=== PATIENT | female | born 1975 | race African-American/Black ===

== ENCOUNTER 2017-03-01 03:29 | Observation (INO) | payer BC ==
[2017-03-01 04:19] LABS: Bilirubin Negative (Negative); Blood, Urine Small (Negative); Glucose, Urine (Dipstick) Negative (Negative); Ketone, Urine Negative (Negative); Nitrite Negative (Negative); Protein, Urine (Dipstick) Negative (Neg-Trace); Urobilinogen 0.2 mg/dL (0.2-1.0)
[2017-03-01 04:22] LABS: Bacteria/HPF None Seen HPF (None Seen); WBC/HPF 0-3 HPF (0-3)
[2017-03-01 04:28] LABS: Hyaline Casts/LPF NONE SEEN LPF (0-3 Hyaline)
[2017-03-01 04:31] LABS: Amphetamine Not Detected (NotDetected); Methamphetamine Not Detected (NotDetected)
[2017-03-01 04:32] LABS: Methadone Not Detected (NotDetected)
[2017-03-01] MEDS ORDERED: Lorazepam 2 MG/ML VIAL ONE (04:40)
[2017-03-01] MEDS ORDERED: Ketorolac Tromethamine 30 MG/ML VIAL ONE (04:40)
[2017-03-01] MEDS ORDERED: Ondansetron HCl/PF 4 MG/2 ML Vial ONE (04:44)
[2017-03-01 04:56] LABS: #Basophils 0.1 thou/uL (0.0-0.2); #Eosinphils 0.1 thou/uL (0.0-0.7); #Lymphocytes 2.2 thou/uL (1.20-3.40); #Monocytes 0.6 thou/uL (0.11-0.59); #Neutrophils 7.1 thou/uL (1.40-6.50); %Eosinophils 1.1 % (0.0-10.0); %Lymphocytes 21.4 % (21.0-51.0); %Monocytes 6.3 % (0.0-10.0); Hematocrit 37.7 % (36.0-47.0); Mean Platelet Volume 6.8 fL (7.4-10.4); Red Blood Cell (RBC) Count 3.93 mill/uL (4.20-5.40); White Blood Cell (WBC) Count 10.1 thou/uL (4.8-10.8)
[2017-03-01 05:03] LABS: ALT (SGPT) 9 U/L (8-55); AST (SGOT) 13 U/L (5-34); Alkaline Phosphatase 67 U/L (40-150); Anion Gap 13 mmol/L (10-20); BUN (Urea Nitrogen) 12 mg/dL (7.0-18.7); Bilirubin, Total 0.3 mg/dL (0.2-1.2); Calc. Creatinine Clearance 0 mL/min (70-130); Carbon Dioxide 20 mmol/L (22-29); Chloride 107 mmol/L (98-107); Estimated GFR-MDRD Greater than 90; Globulin 3.1 g/dL (2.4-3.5); Lipase 18 U/L (8-78); Protein, Total 7.1 g/dL (6.0-8.3)
--- NOTE | 2017-03-01 08:53 | CT ---
PRELIMINARY REPORT/[facility]/EMERGENCY AFTER HOURS PROCEDURE: EXAM: CT Abdomen and Pelvis With Intravenous Contrast CLINICAL HISTORY: 41 years old, female; Pain; Abdominal pain; Generalized TECHNIQUE: Axial computed tomography images of the abdomen and pelvis with intravenous contrast. Coronal reformatted images were created and reviewed. CONTRAST: 100 mL of ISOVUE administered intravenously. COMPARISON: No relevant prior studies available. FINDINGS: Lower thorax: No acute findings. ABDOMEN: Liver: Unremarkable. Gallbladder and bile ducts: Gallbladder is enlarged and distended. No calcified stone. Pancreas: Unremarkable. Spleen: Unremarkable. Adrenals: Unremarkable. Kidneys and ureters: Unremarkable. Stomach and bowel: Stool throughout the colon. Appendix: Appendix is not seen, however no inflammatory changes in the pericecal region seen at this time. PELVIS: Bladder: Unremarkable. Reproductive: Status post hysterectomy. ABDOMEN and PELVIS: Intraperitoneal space: No free air. No significant fluid collection. Bones/joints: No acute fracture. No dislocation. Soft tissues: Unremarkable. Vasculature: Unremarkable. No abdominal aortic aneurysm. Lymph nodes: Scattered non specific subcentimeter mesenteric lymph nodes. IMPRESSION: 1. Gallbladder is enlarged and distended. Finding may represent gallbladder hydrops. Recommend right upper quadrant sonogram for further evaluation. 2. Appendix is not seen, however no inflammatory changes in the pericecal region seen at this time. Thank you for allowing us to participate in the care of your patient. Dictated and Authenticated by: Garcia Mendoza MD 03/01/2017 6:22 AM Central Time ([place] & [place]) FINAL REPORT CONTRAST ENHANCED CT IMAGES OF ABDOMEN AND PELVIS: Date: 03/01/17 FINDINGS/IMPRESSION: IV and oral contrast given. This is the final report. Preliminary exam was performed by [facility]. The liver, spleen, gallbladder, and pancreas are unremarkable. The left kidney is unremarkable. In the central mid pole of the right kidney, there is a tiny area of decreased enhancement, not seen on the patient's previous CT from 10/25/16. This may represent a small area of acute focal pyelonephr itis. Correlate with laboratory findings. The rest of the abdomen and pelvis is unremarkable. Findings called to Dr. Cordon in the ER at 0811 hours on 03/01/17. This report is in disagreement with the preliminary report by [facility]. POS: [facility]
--- NOTE | 2017-03-01 09:09 | ULT ---
ULTRASOUND GALLBLADDER RIGHT UPPER QUADRANT: Date: 03/01/17 HISTORY: Pain. COMPARISON: CT examination from same day. FINDINGS: Appendix is not well seen. The gallbladder is elongated without pericholecystic fluid, wall thickenin g, or cholelithiasis. Gallbladder wall is 2.0 mm. Common bile duct is less than 3.0 mm. Right kidney measures 11.5 x 4.1 x 4.7 cm. Liver is normal in echotexture, measured at 19.2 cm in length. IMPRESSION: 1. No cholelithiasis or evidence of cholecystitis. 2. Mild hepatomegaly. POS: [facility]
[2017-03-01] MEDS ORDERED: Haloperidol Lactate 5 MG/ML VIAL ONE (09:38)
[2017-03-01] MEDS ORDERED: Acetaminophen 650 MG Suppository PR PRN (11:00)
[2017-03-01] MEDS ORDERED: Ondansetron HCl/PF 4 MG/2 ML Vial IVP PRN (11:00)
[2017-03-01] MEDS ORDERED: Ondansetron ODT 4 MG TAB PO PRN (11:00)
[2017-03-01] MEDS ORDERED: Calcium Carbonate 500 MG ChewTAB PO PRN (11:00)
[2017-03-01 11:05] VITALS: BMI 21.4
[2017-03-01] MEDS: Acetaminophen 325 MG TAB PO SCH ×3 (11:48→21:28)
--- NOTE | 2017-03-01 11:58 | PDOC.EVN ---
Attending Addendum - Attending Addendum I personally evaluated the patient and discussed the management with Dr. Tiffani Hand. I agree with the History, Examination, Assessment and Plan documented in his H& P with any addition or exceptions noted below. Patient with recent fall and pain for the last 6 days admitted here due to agitation, abdominal pain, and concern for pyelonephritis. She has had no nausea , vomiting, fever, diarrhea, constipation. Reports her previous surgical incision (from 4 months ago) was painful after her fall. She has no bruising. Her reports that the patient ran out of Soma a few days ago, and she normally takes that along with [employer] that is prescribed for chronic back pain. The patient is resting comfortably now, but was highly agitated in the ER and had to be given Ativan and Haldol to calm. She has normal blood work, a UA that is not consistent with UTI or pyelonephritis, and a CT scan of abdomen that does not show serious or acute pathology. Due to symptoms and time course, it is possible the patient is experiencing Soma withdrawals. Will treat supportively, pain medications as needed, though will avoid opioids and benzos if possible. Haldol/Geodon as needed for agitation if uncontrollable. Do not expect Pyelonephritis or any other serious intraabdominal cause of her presentation.
[2017-03-01] MEDS ORDERED: Ketorolac Tromethamine 15 MG/ML VIAL IM SCH (12:00)
[2017-03-01] MEDS ORDERED: Ketorolac Tromethamine 30 MG/ML VIAL IM SCH (12:00)
--- NOTE | 2017-03-01 13:25 | HP-2 ---
CODE STATUS: FULL. PRIMARY CARE PHYSICIAN: None. ATTENDING: Roderick Hernandez M.D. RESIDENT: Luigi Hand M.D. HISTORIAN: Patient's sister and . SPECIALISTS: None. CHIEF COMPLAINT: Abdominal pain. HISTORY OF PRESENT ILLNESS: A 41-year-old -Israeli female with past medical history of prepyloric perforation with exploratory laparotomy repair in 10/[address] Bradley, who presents with abdominal pain following a fall. The patient fell in her abdomen five days ago when stepping over a chain link fence. She landed on her right lower quadrant on the ground, which is where her prior surgery occurred per the patient's sister. Abdominal pain continued over last 5 days. Presented to ED with 10/10 pain. Denied any nausea, vomiting, fevers, or change in bowel habits. Denies urinary complaints. Of note, the patient is on Dawson and Soma through boat painter in [place] for chronic back pain that was started at least 4-5 months ago. She ran out of Soma at least 2 days ago per her . She still has Dawson at home. In the ED, the patient was exhibiting bizarre behavior per the ED report. She was writhing in pain on ED floor after removing her clothes when she was reevaluated by the ED physician who recommended admission. ER: Rocephin 1 gram, morphine 6 mg IV, Ativan 1 mg IV, Haldol 2.5 mg IM, Toradol 30 mg IM and 1 liter normal saline. PAST MEDICAL HISTORY: 1. Tobacco abuse. 2. Chronic back pain. PAST SURGICAL HISTORY: In the last year, the patient has had hysterectomy, laparoscopic oophorectomy, and exploratory laparotomy for pyloric perforation closure with omental flap (10/24). ALLERGIES: No known drug allergies. MEDICATIONS: 1. Dawson 10/325 mg p.r.n. 2. Soma, unknown dose. FAMILY HISTORY: 1. Mother, hypertension. 2. Sister, asthma. SOCIAL HISTORY: The patient smokes 1 pack per day for at least 6 years. Rare alcohol use. Denies any other drug use. The patient works at the [employer]. She is with two children. Denies any ill contacts. REVIEW OF SYSTEMS: A 12-step review of systems including general, eyes, ENT, respiratory, CV, GI, , skin, musculoskeletal, neuro, and psychiatric are negative except for pertinent positives included in HPI. PHYSICAL EXAMINATION: VITAL SIGNS: BP 138/74, pulse 68, T-max 98.5, respiratory rate 22, O2 sat 99% on room air, weight 54 kilograms. GENERAL: The patient is sedated and difficult to arouse, lying naked in the bed with covers over her head. Answers questions appropriately when awakened, appears uncomfortable when awake. EYES: EOMI, PERRLA, and nonicteric. ENT: Moist mucous membranes. Oropharynx clear. CARDIOVASCULAR: Regular rate and rhythm, no murmur, rubs, or gallops. Pulses are equal. RESPIRATORY: CTAB, no increased work of breathing, no rales or rhonchi. ABDOMEN: Nondistended. Diffuse guarding, riving in pain during exam. The patient was sleeping comfortably at baseline. When palpating with stethoscope, patient appears less uncomfortable with minimal guarding. No CVA tenderness present. EXTREMITIES: No edema. Equal movements bilaterally. SKIN: No rash or ulcers. No palpable lesions. NEUROLOGIC: Cranial nerves II through XII focally intact. No focal deficits. PSYCHIATRIC: The patient is sedated, agitated when aroused. LABORATORY DATA: CBC: WBC 10.1, hemoglobin 12.2, hematocrit 37.7, and platelets 355. CMP: Sodium 136, potassium 3.5, chloride 107, bicarbonate 20, BUN 12, creatinine 0.73, glucose 125, calcium 9.0, total protein 7.1, albumin 4.0, total bilirubin 0.3, AST 13, ALT 9, alkaline phosphatase 67. Lipase 18. Beta hCG negative. UDS positive for benzos and UA small blood, 4-6 RBCs, 0-3 WBCs, no bacteria, no nitrites, and leukocyte esterase and 4-6 squamous epithelial cells. IMAGING: CT abdomen and pelvis showed a tiny area of decreased enhancement in the right kidney, which may be consistent with acute focal pyelonephritis. Enlarged gallbladder noted. Right upper quadrant ultrasound showed elongated gallbladder with no wall thickening or cholelithiasis. Common bile duct is less than 3 mm. Mild hepatomegaly seen. ASSESSMENT AND PLAN: A 41-year-old -Israeli female, who presents with abdominal pain. 1. Acute drug withdrawal secondary to Soma. The patient ran out of Filecubed at least 2 days ago per . Has been taking for a few months at least through boat painter in [place]. The patient has increased anxiety, agitation, and abdominal pain which are not explained by exam, imaging, and labs. History of fall on abdomen but CT abdomen/pelvis showed nothing acute except a tiny focal area on right kidney that could be consistent with pyelonephritis in proper context. She denies urinary complaints or fever, and has no labs corroborating this diagnosis. The patient was given Rocephin x1 in ED to cover. The patient required Haldol and Ativan to calm her down with bizarre behaviors that appear more consistent with psychosis secondary to Soma withdrawal. Supportive care is planned. We will avoid opioids and Soma this time. Toradol and Tylenol as needed for pain relief. Haldol as needed for psychosis. We will continue to monitor her status. We will check LDH to evaluate for mesenteric ischemia. Observation to medical. Expect one day stay. 2. Tobacco abuse. Nicotine patch p.r.n. 3. Prophylaxis, SCDs. Symptomatic medications will be provided. History and physical exam as well as management discussed with Dr. Hernandez. [place]
[2017-03-01] MEDS ORDERED: ISOVUE-370 76%-LOCM 1 ML ONE (13:41)
[2017-03-01] MEDS ORDERED: Iopamidol 370 76% 50 ML VIAL FS ONE (13:41)
[2017-03-01] MEDS ORDERED: FLU VACC QS2017-18 36 mo. & older 0.5 ML SYRINGE IM ONE (14:00)
[2017-03-01] MEDS ORDERED: Haloperidol Lactate 5 MG/ML VIAL IM SCH (15:00)
[2017-03-01] MEDS: Famotidine 20 MG TAB PO SCH (21:28)
[2017-03-01] MEDS: Ketorolac Tromethamine 30 MG/ML VIAL IM PRN (23:56)
[2017-03-02] MEDS: Acetaminophen 325 MG TAB PO SCH ×4 (00:01→12:10)
[2017-03-02] MEDS ORDERED: Simethicone Chewable 80 MG TAB PO SCH (06:59)
--- NOTE | 2017-03-02 07:04 | PDOC.FM ---
- Subjective Subjective: Pt kicking around laying down the wrong side of the hospital bed. Says she is still having really bad stomach pain. Did not eat anything as she does not have an appetite. Denies any fevers or chills. Denies any other sx's - Objective Vital Signs & Weight: Vital Signs (12 hours) Temp Pulse Resp BP Pulse Ox 03/02/17 00:00 99.2 F 03/01/17 20:33 100 F H 67 18 146/87 H 96 03/01/17 20:00 100 F H 67 18 96 Result Diagrams: 03/01/17 04:42 03/01/17 04:42 Radiology Reviewed by me: Yes (No new imaging ) Radiology: CT ab/pelvis: Read mentions possibility of Pyleonephritis. patient does not fit that clinical picture. <Charanjit Sidhu - Last Filed: 03/02/17 07:01> - Objective Vital Signs & Weight: Vital Signs (12 hours) Temp Pulse Resp BP BP Pulse Ox 03/02/17 08:00 98.6 F 60 18 134/79 134/79 97 03/02/17 00:00 99.2 F Weight Admit Weight 54.885 kg Weight 54.885 kg Result Diagrams: 03/01/17 04:42 03/01/17 04:42 <Roderick Hernandez - Last Filed: 03/02/17 11:22> Phys Exam - Physical Examination Constitutional: NAD HEENT: PERRLA, moist MMs, oral pharynx no lesions Neck: no nodes, supple, full ROM Respiratory: no wheezing, no rales, no rhonchi, clear to auscultation bilateral Cardiovascular: RRR, no significant murmur, no rub Gastrointestinal: soft, non-tender, no distention, positive bowel sounds Very tender to mild palpation. Pt very agitated kicking around Musculoskeletal: no edema, pulses present Neurological: non-focal, normal sensation, moves all 4 limbs Deviation from normal: Hysterionic. Pt thrashing about. Laying wrong side of bed. Skin: no rash, normal turgor, cap refill <2 seconds <Charanjit Sidhu - Last Filed: 03/02/17 07:01> Dx/Plan (1) Acute drug withdrawal syndrome Code(s): F19.239 - OTH PSYCHOACTIVE SUBSTANCE DEPENDENCE WITH WITHDRAWAL, UNSP Status: Acute (2) Tobacco abuse Code(s): Z72.0 - TOBACCO USE Status: Acute (3) Elevated blood pressure reading Code(s): R03.0 - ELEVATED BLOOD-PRESSURE READING, W/O DIAGNOSIS OF HTN Status : Acute - Plan Plan: Acute Drug Withdrawl likely from Soma medication -Pt having reported severe abdominal pain. Has been found naked on multiple occasions. Thrashing and kicking about. CT ab/pelvis shows no acute pathology or anything of concern. One of the symptoms of Soma withdrawl is abdominal pain and severe agitation. -Given geodon this morning. Giving Haldol PRN. -Toradol Q6 hr, and tylenol fely. Still having pain. -Will try maalox, bentyl, and simethicone to help with abdomnial pain. -Pt likely has underlying psych component Elevate BP -BP elevated. Pt constantly moving and thrashing about. Possibly may need blood pressure medication. Will need to f/u outpatient Tobacco abuse -counseled on quitting <Charanjit Sidhu - Last Filed: 03/02/17 07:01> Attending Addendum - Attending Addendum I personally evaluated the patient and discussed the management with Dr. Sidhu. I agree with the History, Examination, Assessment and Plan documented above with any addition or exceptions noted below. Patient more coherent this morning, able to answer questions appropriately. She continues to have severe abdominal pain that began after her fall, and continues to exhibit rebound and severe abdominal tenderness even with distraction techniques. Will discuss case with surgery. Patient reports a desire to go home if it can be determined so serious etiology is the cause of her pain. <Roderick Hernandez - Last Filed: 03/02/17 11:22>
[2017-03-02] MEDS ORDERED: Haloperidol Lactate 5 MG/ML VIAL IM SCH (07:15)
[2017-03-02] MEDS: Famotidine 20 MG TAB PO SCH (07:36)
[2017-03-02] MEDS: Dicyclomine 10 MG CAP PO SCH ×2 (07:36→12:10)
[2017-03-02] MEDS: Mag-Al 1200 mg/1200 mg/30 ML UDCUP PO SCH ×2 (07:36→12:10)
[2017-03-02 08:16] VITALS: BP 134/79; TEMP 98.6
[2017-03-02] MEDS: Ketorolac Tromethamine 30 MG/ML VIAL IM PRN (09:51)
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
--- NOTE | 2017-03-04 14:30 | DIS-2 ---
DATE OF ADMISSION: 03/01/2017 DATE OF DISCHARGE: 03/02/2017 DISCHARGE AND ADMITTING ATTENDING: Roderick Hernandez MD CONSULTATIONS: General surgery, Dr. Chau. PROCEDURES: None. IMAGIN. Abdomen and pelvis CT showed gallbladder is enlarged and distended probably may represent gallbla dder hydrops. Recommended right upper quadrant sonogram for further evaluation. Appendix is not see n; however, no inflammatory changes in the pericecal region seen at this time. 2. Abdomen ultrasound showed no cholelithiasis or evidence of cholecystitis. Mild hepatomegaly. DISCHARGE MEDICATIONS: Zofran 4 mg p.o. q.6 hours p.r.n.; acetaminophen 325 mg; Maalox as needed; Tu ms as needed; dicyclomine as needed; hydrocodone 10 mg, 2 tabs p.o. q.4 hours; pantoprazole 40 mg; an d potassium 40 mEq p.o. q.a.m. PRIMARY DIAGNOSES: 1. Acute drug withdrawal from Soma medication. 2. Elevated blood pressures. 3. Tobacco abuse. HISTORY OF PRESENT ILLNESS AND BRIEF HOSPITAL COURSE: This is a 41-year-old female that came in with a history of exploratory laparotomy and repair of perforated ulcer in 10/[address] Bradley. She r eports that she had fallen earlier in the week on Friday on a chain and found on the ground, and had abdominal pain ever since. She is a chronic pain medication user, uses [place] and uses Soma. She had ran out of the [place] about 2 days ago prior to this admission. She came in writhing around in pain a nd at one point would get naked, just kept kicking and screaming, just reporting of severe abdominal pain. She would have almost an acute abdomen picture on physical exam. They got CT exam, which show ed maybe some pyelonephritis, but we got a UA which was negative for anything. We had cultured it ou t, it did not grow anything. Her labs also were fine. White blood cell count was 10.1. Her BMP was fine and she never did have any fevers and no CVA tenderness on admission as well. We likely read u shawn some Soma medication withdrawal can have kind of acute abdominal picture, kind of have severe abd ominal pain and psychosis. So, at this time, we admitted her, gave her Haldol and Geodon to try and help her calm down. On the second day on the , she just reported she wanted just General Surgery to make sure that her abdomen was okay as she had fallen and fallen on her abdomen was concerned als o, that is why we consulted General Surgery. They checked out and said that she was fine, read the i mages and did not have anything of concern. So, at this time, we discharged her home. I recommended she get her medication refilled if needed. DISPOSITION: Stable. DISCHARGE LOCATION: Home. ACTIVITY: As tolerated. DIET: Regular diet. FOLLOWUP: She will need to follow up with primary care in 14 days for hospital followup.
== END 2017-03-02 14:50 | disposition home or self-care (01) ==
LOC: ERS 03:29 → T4-A 10:51 → INTOOBSV 10:51
PROVIDERS: ADMIT Student in an Organized Health Care Education/Training Program; ATTEND Student in an Organized Health Care Education/Training Program
DX: F11.23 Opioid dependence with withdrawal (principal); R03.0 Elevated blood-pressure reading, without diagnosis of hypertension; F17.210 Nicotine dependence, cigarettes, uncomplicated; Z90.721 Acquired absence of ovaries, unilateral; Z90.710 Acquired absence of both cervix and uterus; Z98.890 Other specified postprocedural states
CPT/HCPCS: 36415; 74177; 76705; 80053; 80306; 81003; 81015; 83615; 83690; 84703; 85025; 87086; 96372; 96374; 96375; 96376; G0378; J0696; J1630; J1885; J2060; J2405; Q0162

== ENCOUNTER 2017-08-23 04:25 | Emergency (ER) | payer BC, SELFPAY ==
[2017-08-23 05:25] LABS: Bilirubin Negative (Negative); Blood, Urine Moderate (Negative); Clarity CLOUDY (Clear); Glucose, Urine (Dipstick) Negative (Negative); Leukocyte Negative (Negative); Nitrite Negative (Negative); Protein, Urine (Dipstick) 30 mg/dL (Neg-Trace); Specific Gravity, Urine 1.025 (1.002-1.036); Urobilinogen 0.2 mg/dL (0.2-1.0); pH, Urine 6.5 (5.0-9.0)
[2017-08-23 05:28] LABS: Bacteria/HPF None Seen HPF (None Seen); Hyaline Casts/LPF 0-3 HYALINE CAST LPF (0-3 Hyaline); Pathc Cast-AUWi Flag 0.43 (0-2.49); WBC/HPF 0-3 HPF (0-3)
[2017-08-23 05:32] LABS: #Basophils 0.1 thou/uL (0.0-0.2); #Lymphocytes 1.9 thou/uL (1.20-3.40); #Neutrophils 12.4 thou/uL (1.40-6.50); %Basophils 0.6 % (0.0-1.0); %Eosinophils 0.2 % (0.0-10.0); %Monocytes 6.4 % (0.0-10.0); %Neutrophils 80.8 % (42.0-75.0); Hemoglobin 13.2 g/dL (12.0-16.0); Mean Corpuscular HGB CONC 34.3 g/dL (32.0-36.0); Mean Corpuscular Hemoglobin 32.2 pg (27.0-31.0); Mean Platelet Volume 6.7 fL (7.4-10.4); Platelet Count 285 thou/uL (130-400); RBC Distribution Width 13.1 % (11.5-14.5); Red Blood Cell (RBC) Count 4.09 mill/uL (4.20-5.40); White Blood Cell (WBC) Count 15.4 thou/uL (4.8-10.8)
[2017-08-23 05:41] LABS: BHCG - Serum Negative (NEGATIVE); Pregs Control Background? CLEAR/WHITE (CLR/WHITE); Pregs Control Bar Appear? YES (CONTROL BAR)
[2017-08-23 05:43] LABS: Renal Epithelial None Seen HPF (0-3); Transitional Epithelial NONE SEEN HPF (0-3)
[2017-08-23 05:46] LABS: ALT (SGPT) 19 U/L (8-55); AST (SGOT) 22 U/L (5-34); Albumin 4.4 g/dL (3.5-5.0); Alkaline Phosphatase 68 U/L (40-150); Anion Gap 17 mmol/L (10-20); BUN (Urea Nitrogen) 14 mg/dL (7.0-18.7); Bilirubin, Total 0.4 mg/dL (0.2-1.2); Calc. Creatinine Clearance 0 mL/min (70-130); Calcium 9.4 mg/dL (7.8-10.44); Carbon Dioxide 19 mmol/L (22-29); Chloride 105 mmol/L (98-107); Estimated GFR-MDRD Greater than 90; Globulin 3.2 g/dL (2.4-3.5); Glucose 154 mg/dL (70-105); Lipase 8 U/L (8-78); Potassium 3.3 mmol/L (3.5-5.1); Protein, Total 7.6 g/dL (6.0-8.3); Sodium 138 mmol/L (136-145)
[2017-08-23] MEDS ORDERED: Morphine 10 MG/ML VIAL ONE (05:58)
[2017-08-23] MEDS ORDERED: Bisacodyl 10 MG SUPP ONE (06:54)
[2017-08-23] MEDS ORDERED: Magnesium Citrate 300 ML BOT ONE (06:54)
--- NOTE | 2017-08-23 08:02 | ULT ---
PELVIC ULTRASOUND: Date: 08/23/17 HISTORY: Left-sided pelvic pain. FINDINGS: Transabdominal images were obtained. Transvaginal could not be done as the patient would not hold sti ll and the transabdominal images are limited due to lack of patient cooperation due to pain. The uterus has been removed by history. Neither right nor left ovary is identified. No fluid collecti on seen. IMPRESSION: Limited exam. Postop hysterectomy change. Neither right nor left ovary is identified. POS: [facility]
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
== END 2017-08-23 08:28 | disposition home or self-care (01) ==
LOC: ERS 04:25
DX: K59.00 Constipation, unspecified (principal); F17.210 Nicotine dependence, cigarettes, uncomplicated; Z79.899 Other long term (current) drug therapy
CPT/HCPCS: 36415; 74176; 76856; 80053; 81003; 81015; 83690; 84703; 85025; 96372; J2270

== ENCOUNTER 2017-08-30 15:57 | Observation (INO) | payer SELFPAY ==
[~2017-08-30 15:57] MED LIST: ISOVUE-370 76%-LOCM 1 ML ONE
--- NOTE | 2017-08-30 17:37 | ULT ---
PELVIC ULTRASOUND WITH DOPPLER (TRANSABDOMINAL, TRANSVAGINAL, CALDWELL SCALE, COLOR FLOW AND SPECTRAL DOPPLER) 08/30/17 HISTORY: Left sided pelvic pain. Left lower quadrant pain. Patient is status post hysterectomy and right oopho rectomy. FINDINGS: The uterus and right ovary are not visualized. The left ovary measures 2.2 x 1.6 x 1.4 cm with a 1.2 cm dominant follicle. Flow is demonstrated through the left ovary. No pelvic mass or free fluid is id entified. IMPRESSION: No significant abnormalities are seen. POS: [facility]
[2017-08-30] MEDS ORDERED: Ketorolac Tromethamine 30 MG/ML VIAL ONE (17:59)
[2017-08-30] MEDS ORDERED: Pantoprazole 40 MG VIAL ONE (17:59)
--- NOTE | 2017-08-30 19:25 | PDOC.FPRHP ---
- History of Present Illness Chief Complaint: Abdominal pain/N/V x5 days History of Present Illness: This is a 42 yo AAF w/ significant PMH of perforated Ulcer in 2017 likely 2/2 NSAID use, tobacco abuse, hysterectomy 2/2 fibroids, R oophorectomy 2/2 ovarian torsion, Bilateral tubal ligation, presents w/ worsening abdominal pain for the past 5 days assocaited w/ Nausea, vomiting, anorexia, and dark stool today and unable to tolerate water. States that it feels similar to previous perforated ulcer. She was transferred here for ovarian US, which was negative. Her last CT scan of the abdomen on 08/23 without contrast was negative. She hasn't had an EGD or colonoscopy since 10/2016. - Allergies/Adverse Reactions Allergies Allergy/AdvReac Type Severity Reaction Status Date / Time No Known Drug Allergies Allergy Verified 10/14/16 08:51 - Home Medications Medication Instructions Recorded Confirmed Type HYDROcodone Bit/APAP 10/325 [Randolph] 2 tab PO Q4H PRN #30 tab 10/19/16 03/01/17 Rx Pantoprazole [Protonix] 40 mg IVP DAILY #60 vial 10/19/16 03/01/17 Rx Potassium Chloride [K-Dur] 40 meq PO QAM-WM #30 tab 10/27/16 03/01/17 Rx Acetaminophen [Tylenol Regular 650 mg PO Q4HR tab 03/02/17 Rx Strength] Aluminum & Magnesium Hydroxide 30 ml PO QID-WM udcup 03/02/17 Rx [Maalox] Calcium Carbonate [Tums] 1,000 mg PO Q4H PRN tab 03/02/17 Rx Dicyclomine [Bentyl] 10 mg PO QID cap 03/02/17 Rx Ondansetron [Zofran ODT] 4 mg PO Q6H PRN #30 tab 03/02/17 Rx - History PMHx: Perforated peptic ulcer, Uterine fibroids, Ovarian torsion, SBO PSHx: Hysterectomy 2/2 fibroids, R oophorectomy 2/2 Ovarian torsion, bilateral tubal ligation, Lapartomy for perforated ulcer FHx: None Social: + tobacco abuse. No alcohol or drug use. - Review of Systems ROS unobtainable: other (History difficult to obtain as patient uncooperative, and has a diffult time sitting still.) General: reports: fever/chills, weight/appetite/sleep changes Eyes: denies: eye pain, vision changes ENT: denies: nasal congestion, rhinorrhea Respiratory: denies: cough, congestion, shortness of breath Cardiovascular: denies: chest pain, palpitation Gastrointestinal: reports: nausea, vomiting, abdominal pain, other (dark stool) Genitourinary: denies: incontinence, dysuria, polyuria, discharge Skin: denies: rashes, lesions - Vital signs BP: 107/96 HR: 84 RR: 16 Tmax: 100.4 Pox: 100% on RA Wt: 45kg - Physical Exam Constitutional: NAD, awake, alert and oriented, other (Thin, cachetic appearing) HEENT: normocephalic and atraumatic, PERRLA, EOMI, TM's clear and intact, grossly normal hearing, normal nasal mucosa, MMM, other (Poor dentition) Heart: RRR, normal S1/S2, no murmurs/rubs/gallops Lungs: CTAB, no respiratory distress, good air movement, no rales/rhonchi, no wheezing, no retractions Abdomen: soft, bowel sounds present, no masses/distention, other (+ midline old keloid scar, No rebound, no peritoneal signs.) Neurological: CN II-XII intact Psychiatric: other (Uncooperative) FMR H&P: Results - Labs Lab results: Reviewed [facility] labs CBC: 7.1/12.1/36.9/378 CMP: 134/3.0/99/20/13/0.72/110. AST: 40, ALT: 100, Alk phos - 55. UA - Pro 100, 40 ketones, trace blood, 7-10 RBCs. Pelvic US w/ doppler negative. FMR H&P: A/P - Problem List (1) Abdominal pain Current Visit: Yes Status: Acute Code(s): R10.9 - UNSPECIFIED ABDOMINAL PAIN Assessment and Plan: Pt has long hx of abdominal pain, however pt states that this feels like perforated ulcer in the past. Awaiting stat CTA of abdomen results. If negative , consider GI consult in am. Will also check UDS. UA showed hematuria which after review of previous labs, has been long-standing and does not appear to have been worked up. Recommend urology consult in am and f/u with urine cx. Will start zosyn as patient now developing fever, and also check Blood cx. Will use morphine PRN for pain, as patient unable to tolerate NSAIDs 2/2 perforated ulcer in past. Will also check FOBT as pt complaining of dark stool today. (2) Elevated LFTs Current Visit: Yes Status: Acute Code(s): R94.5 - ABNORMAL RESULTS OF LIVER FUNCTION STUDIES Assessment and Plan: New onset elevated ALT. Will check RUQ US, RPR, HIV. (3) Fever Current Visit: Yes Status: Acute Code(s): R50.9 - FEVER, UNSPECIFIED Assessment and Plan: Will f/u w/ Urine Cx, Blood cx, RUQ US, CTA abd 2/ contrast. (4) Hematuria Current Visit: Yes Status: Acute Code(s): R31.9 - HEMATURIA, UNSPECIFIED Assessment and Plan: Consider urology consult in am. (5) Hypokalemia Current Visit: No Status: Acute Code(s): E87.6 - HYPOKALEMIA Assessment and Plan: Will replace and check a mag and recheck in am. Likely 2/2 anorexia (6) Tobacco abuse Current Visit: No Status: Chronic Code(s): Z72.0 - TOBACCO USE Assessment and Plan: Counselled on cessation FMR H&P: Upper Level - Plan Date/Time: 08/30/171909 I, [], have evaluated this patient and agree with findings/plan as outlined by leadership program internship resident. Pertinent changes/additions are listed here.
[2017-08-30] MEDS ORDERED: Ondansetron HCl/PF 4 MG/2 ML Vial IVP PRN (19:32)
[2017-08-30] MEDS ORDERED: Ondansetron ODT 4 MG TAB PO PRN (19:32)
[2017-08-30] MEDS ORDERED: Pantoprazole 40 MG VIAL IVP SCH ×2 (19:32→19:45)
[2017-08-30] MEDS ORDERED: Morphine 2 MG/ML SYRINGE SLOW IVP PRN (19:36)
[2017-08-30] MEDS ORDERED: Lorazepam 2 MG/ML VIAL SLOW IVP PRN (19:39)
[2017-08-30] MEDS ORDERED: Potassium Chloride 10 MEQ in Premix Bag 1 BAG IVPB SCH ×2 (19:45)
[2017-08-30 20:56] LABS: BHCG - Serum Negative (NEGATIVE); Pregs Control Background? CLEAR/WHITE (CLR/WHITE); Pregs Control Bar Appear? YES (CONTROL BAR)
[2017-08-30 21:00] LABS: Acetaminophen Less than 6.0 mcg/mL (10.0-30.0); Alcohol Less than 10 mg/dL (Less than 10); Magnesium 1.5 mg/dL (1.6-2.6); Salicylate Less than 8.0 mg/dL (15.0-30.0)
[2017-08-30] MEDS ORDERED: Morphine 4 MG/ML Carpuject SLOW IVP SCH (21:00)
[2017-08-30 21:18] LABS: Syphilis Antibody Nonreactive (Nonreactive); Syphilis Antibody Index 0.04 S/CO (<1.00 Non-Reactive)
[2017-08-30] MEDS: Piperacillin/Tazobactam 3.375 GM in Sodium Chloride 0.9% 100 ML IVPB SCH (21:58)
[2017-08-30] MEDS ORDERED: Magnesium 2 GM/NS 0.9% 100 ML 2 GM in Premix Bag 1 BAG IVPB SCH (22:15)
[2017-08-30 22:45] LABS: Amphetamine Not Detected (NotDetected); Barbiturates Screen Not Detected (NotDetected); Benzodiazepine Screen Not Detected (NotDetected); Cocaine Metabolite Screen Not Detected (NotDetected); Medtox Control Line Valid? VALID (VALID); Medtox Reader # READER 1; Methadone Not Detected (NotDetected); Methamphetamine Not Detected (NotDetected); Opiate Screen Detected (NotDetected); Oxycodone Screen Not Detected (NotDetected); Phencyclidine (PCP) Not Detected (NotDetected); THC/Cannabinoid Screen Not Detected (NotDetected); Tricyclic Screen Not Detected (NotDetected)
--- NOTE | 2017-08-30 22:46 | ULT ---
RIGHT UPPER QUADRANT ULTRASOUND 08/30/17 HISTORY: Elevated LFTs and abdominal pain. FINDINGS: The liver, pancreas, gallbladder, and right kidney appear normal. The common duct measures 2 mm in di ameter. No free fluid is seen. IMPRESSION: Unremarkable exam. POS: [facility]
[2017-08-30 23:45] LABS: HBSAg Index 0.18 S/CO (0-0.99); HIV (1/2) Antibody/Antigen Non-Reactive (NonReactive); HIV 1/2 INDEX 0.08 S/CO (<1.00); Hep B Core Total Ab Non-Reactive (NonReactive); Hep B Core Total Index 0.07 S/CO (0-0.79); Hep B Surf Ag Non-Reactive S/CO (NonReactive); Hep C IgG Ab Non-Reactive (NonReactive); Hep C Index 0.07 S/CO (0-0.79)
--- NOTE | 2017-08-31 00:03 | CT ---
CT ABDOMEN AND PELVIS WITH ORAL AND IV CONTRAST: 08/30/17 HISTORY: Intermittent abdominal pain for the past year since pyloric ulcer repair after rupture. FINDINGS: Comparison is made with exam of 03/01/17. The lung bases are clear. The liver, spleen, pancreas, adrenal glands and kidneys are normal. No calc ified gallstones are identified. No free air, free fluid or lymphadenopathy seen in the abdomen or pe lvis. The small bowel loops are not abnormally dilated. An abnormally dilated fluid filled appendix i s not definitely seen. There is suggestion of thickening of the wall of the distal stomach/pyloric an trum. IMPRESSION: Probable wall thickening of the pyloric antrum. Further evaluation with endoscopy is recommended. POS: [facility]
[2017-08-31] MEDS: Sodium Chloride 0.9% 1,000 ML IV SCH ×2 (00:23→13:01)
[2017-08-31 00:33] LABS: Hep B Surf AB Reactive (NonReactive)
[2017-08-31 00:34] LABS: HBSAB Concentration 1640.01 mIU/mL
[2017-08-31 00:56] VITALS: BMI 20.3
[2017-08-31] MEDS: Piperacillin/Tazobactam 3.375 GM in Sodium Chloride 0.9% 100 ML IVPB SCH ×4 (02:28→21:07)
[2017-08-31 05:48] LABS: Hemoglobin 12.4 g/dL (12.0-16.0); Mean Corpuscular HGB CONC 32.5 g/dL (32.0-36.0); Mean Corpuscular Hemoglobin 31.8 pg (27.0-31.0); Mean Corpuscular Volume 97.8 fL (78.0-98.0); Mean Platelet Volume 6.6 fL (7.4-10.4); Platelet Count 317 thou/uL (130-400); RBC Distribution Width 13.7 % (11.5-14.5); Red Blood Cell (RBC) Count 3.91 mill/uL (4.20-5.40); White Blood Cell (WBC) Count 9.8 thou/uL (4.8-10.8)
[2017-08-31 06:03] LABS: Magnesium 2.6 mg/dL (1.6-2.6)
[2017-08-31 06:14] LABS: #Eosinphils 0.1 thou/uL (0.0-0.7); #Lymphocytes 3.7 thou/uL (1.20-3.40); #Monocytes 0.9 thou/uL (0.11-0.59); %Basophils 0.5 % (0.0-1.0); %Eosinophils 1.5 % (0.0-10.0); %Lymphocytes 37.9 % (21.0-51.0); %Monocytes 8.9 % (0.0-10.0); %Neutrophils 51.2 % (42.0-75.0); Band 2 % (5-11); Lymphocytes 32 % (21-51); MDiff Complete? YES; Monocytes 6 % (0-10); Neutrophil 60 % (42-75)
[2017-08-31] MEDS: Morphine 2 MG/ML SYRINGE SLOW IVP PRN ×3 (06:34→13:06)
[2017-08-31 06:58] LABS: ALT (SGPT) 76 U/L (8-55); AST (SGOT) 31 U/L (5-34); Albumin 3.7 g/dL (3.5-5.0); Alkaline Phosphatase 48 U/L (40-150); Anion Gap 14 mmol/L (10-20); BUN (Urea Nitrogen) 5 mg/dL (7.0-18.7); Bilirubin, Total 0.8 mg/dL (0.2-1.2); Calc. Creatinine Clearance 82 mL/min (70-130); Calcium 8.7 mg/dL (7.8-10.44); Carbon Dioxide 20 mmol/L (22-29); Chloride 102 mmol/L (98-107); Estimated GFR-MDRD Greater than 90; Globulin 2.5 g/dL (2.4-3.5); Glucose 94 mg/dL (70-105); Protein, Total 6.2 g/dL (6.0-8.3); Sodium 133 mmol/L (136-145)
[2017-08-31 07:00] LABS: Potassium 2.9 mmol/L (3.5-5.1)
[2017-08-31] MEDS ORDERED: Potassium Chloride 10 MEQ in Premix Bag 1 BAG IVPB SCH (07:30)
--- NOTE | 2017-08-31 07:57 | PDOC.FM ---
- Subjective Subjective: Pt slept well overnight (first good night's sleep in 1 wk). Pain improved this AM that she attributes to last night's morphine. Has not eaten so no vomiting. Endorses very small BM this AM that was not able to be collected. She does not know if it was dark - Objective MAR Reviewed: Yes Vital Signs & Weight: Vital Signs (12 hours) Temp Pulse Resp BP 08/30/17 23:55 98.9 F 86 16 109/73 08/30/17 21:00 98.9 F 86 16 Weight Weight 52.163 kg I&O: 08/30/17 08/31/17 09/01/17 06:59 06:59 06:59 Intake Total 944 Balance 944 Result Diagrams: 08/31/17 05:26 08/31/17 06:28 EKG Reviewed by me: Yes Radiology Reviewed by me: Yes (CT abd/pelvis: Thickening of wall of distal stomach/pyloric antrum) Phys Exam - Physical Examination Constitutional: NAD thin HEENT: PERRLA, moist MMs Neck: supple, full ROM Respiratory: no wheezing, no rales, no rhonchi, clear to auscultation bilateral Cardiovascular: RRR, no significant murmur Gastrointestinal: soft moderately TTP on L upper, mid, and lower quadrants, no rebound/guarding Musculoskeletal: no edema, pulses present Neurological: non-focal, moves all 4 limbs Psychiatric: normal affect, A&O x 3 Skin: normal turgor, cap refill <2 seconds Dx/Plan (1) Abdominal pain Code(s): R10.9 - UNSPECIFIED ABDOMINAL PAIN Status: Acute Plan: Pt with acute on chronic L sided and epigastric abdominal pain. Hx dark stools yesterday but await FOBT. With hx peptic ulcer disease s/p laparotomy in and CT findings of thickened pyloric antrum, consulted Dr. Cowart. Plan appears to be for EGD later today. Remains NPO. Appreciate GI recs. LDH elevated but no sign of hemolysis. With temp 100.4 and abd pain, IV abx were empirically started while awaiting further workup. BCx, UCx pending. (2) History of peptic ulcer Code(s): Z87.11 - PERSONAL HISTORY OF PEPTIC ULCER DISEASE Status: Acute Plan: Oct requiring laparotomy by Dr. Bradley. Has been on PPI since that time. Apparently got down to 96 pounds at that time and has slowly gained weight back , although states down 8 pounds in last week. (3) Hypokalemia Code(s): E87.6 - HYPOKALEMIA Status: Acute Plan: No EKG changes. Continuing to replace. Magnesium was replaced as well. Recheck this afternoon. (4) Elevated LFTs Code(s): R94.5 - ABNORMAL RESULTS OF LIVER FUNCTION STUDIES Status: Acute Plan: Workup performed with no current etiology known. GI consulted. (5) Tobacco abuse Code(s): Z72.0 - TOBACCO USE Status: Chronic Plan: Counseled on cessation. (6) Hematuria Code(s): R31.9 - HEMATURIA, UNSPECIFIED Status: Acute Plan: Chronic without workup. Recommend outpt evaluation.
[2017-08-31] MEDS: Pantoprazole 40 MG VIAL IVP SCH (08:46)
[2017-08-31] MEDS ORDERED: Potassium Chloride 10 MEQ/100 ML PREMIX BAG IVPB SCH (09:00)
[2017-08-31] MEDS ORDERED: Midazolam HCl 2 mg/2 ml Vial ONE (11:10)
[2017-08-31] MEDS ORDERED: Fentanyl 100 MCG/2 ML VIAL ONE (11:43)
[2017-08-31] MEDS ORDERED: HYDROmorphone 2 MG/ML VIAL SLOW IVP PRN (11:45)
[2017-08-31 14:36] LABS: Anion Gap 14 mmol/L (10-20); BUN (Urea Nitrogen) 4 mg/dL (7.0-18.7); Calc. Creatinine Clearance 79 mL/min (70-130); Calcium 8.8 mg/dL (7.8-10.44); Carbon Dioxide 21 mmol/L (22-29); Chloride 102 mmol/L (98-107); Estimated GFR-MDRD Greater than 90; Glucose 94 mg/dL (70-105); Lipase 9 U/L (8-78); Potassium 3.1 mmol/L (3.5-5.1); Sodium 134 mmol/L (136-145)
[2017-08-31] MEDS ORDERED: PROPOFOL 200 MG/20 ML VIAL ONE (16:20)
[2017-08-31] MEDS ORDERED: Lidocaine 1% PF 5 ML VIAL ONE (16:20)
[2017-08-31] MEDS: 1/2 NS w/KCL 20 mEq 1,000 ML IV SCH (16:46)
[2017-08-31] MEDS ORDERED: Lorazepam 2 MG/ML VIAL SLOW IVP SCH (17:15)
--- NOTE | 2017-08-31 18:07 | ADD-HP ---
ADDENDUM: Please see the history and physical done by Dr. Alcala for which I agree. The patient was se en and evaluated, examined and discussed with the residents by bedside. HISTORY OF PRESENT ILLNESS: A 42-year-old female who comes in with abdominal pain f or at least 10 days. Pretty complicated abdominal history including numerous surgeries including daryl wendy for perforated ulcer last summer, but has been having anorexia, nausea, vomiting, abdominal pain . Since at least when a CT was done which was fairly normal, but then CT done yesterday did yenny w some pyloric thickening and was having a little bit of low grade fever as well. It is unclear if t hat is really significant. No diarrhea. Has had quite a bit of weight loss, she estimated 20 pounds , but then after got on our scale, it sounds like it is more like 8. LDH has been elevated, but no e vidence of perforation on CT. Past medical history, past surgical history, social history, medications, review of systems, per the resident's history and physical. PHYSICAL EXAMINATION: GENERAL: Currently afebrile, no apparent distress, pleasant. States her pain is really well control led. HEENT: Conjunctivae not pale, maybe just slightly pale. Does have a moist mucosa. CHEST: Clear. CARDIOVASCULAR: Regular rate and rhythm. ABDOMEN: Minimum epigastric tenderness. No rebound or guarding. Positive bowel sounds. EXTREMITIES: Show no edema. LABORATORY DATA AND X-RAY FINDINGS: Initial blood workup, potassium was low at 2.9, sodium 133, bica rbonate a little low at 20. Initial magnesium is low at 1.5 and that has been replaced. ALT minimal ly elevated at 76. test negative. LDH is elevated at 61, but nothing chronic elevation fo r her. Again, CT showed the pyloric thickening. ASSESSMENT AND PLAN: Abdominal pain, possible peptic ulcer disease or stricture from previous surger y. Plan is to get GI to see her and likely scope her today. Keep her n.p.o. In the meantime, rashad nue proton pump inhibitors, avoiding nonsteroidal anti-inflammatories and getting her pain relief wit h morphine that seems to be working well for her and then we will base plan on what the scope shows.
--- NOTE | 2017-08-31 19:30 | OP ---
DATE OF PROCEDURE: 08/31/2017 PROCEDURE: Esophagogastroduodenoscopy with biopsy. PREOPERATIVE DIAGNOSES: A 42-year-old -[place] female with abdominal pain, past history of p erforated pyloric channel ulcer in 2017. The patient complains of abdominal pain and CAT scan was ne gative. The CAT scan did show some thickening of the pyloric area. The patient had an esophagogastr oduodenoscopy. POSTOPERATIVE DIAGNOSES: Normal esophagogastroduodenoscopy. No ulcer disease seen. In the pyloric channel, there is an area of mucosal edema and erythema, mostly likely represent this previously perf orated ulcer disease. At the time of endoscopy, no ulcer disease was seen. PROCEDURE IN DETAIL: The patient was placed on her left lateral position and was given sedation by A nesthesia Department. A Pentax video gastroscope under direct vision was passed down the oropharynx past the GE junction into the stomach and subsequently into descending duodenum. The esophageal muco sa appeared normal. The GE junction, no pathology seen. She has small hiatus hernia. The fundus, c ardia, and gastric body, no pathology seen. The pyloric channel shows an area of mucosal edema and e rythema most likely represent the area of previously perforated ulcer disease. At the present time, I do not see any ulcer. The duodenal bulb and descending duodenum, no pathology seen. RECOMMENDATIONS: 1. Discontinue n.p.o. 2. Clear liquid diet and advance diet as tolerated. 3. If her abdominal pain persists, obtain abdominal sonogram, rule out any biliary tract disease.
[2017-09-01] MEDS: Piperacillin/Tazobactam 3.375 GM in Sodium Chloride 0.9% 100 ML IVPB SCH ×2 (02:40→09:11)
[2017-09-01] MEDS: 1/2 NS w/KCL 20 mEq 1,000 ML IV SCH ×2 (04:15→06:48)
--- NOTE | 2017-09-01 06:20 | PDOC.FM ---
- Subjective Subjective: Ms. Clark reports that her pain is much improved this morning. She reports that her BM was darker this morning and seemed sticky. She tolerated some grape juice and is having no issue with KCl supplements. She denies any ongoing nausea and that her abdominal pain is much better. - Objective MAR Reviewed: Yes Vital Signs & Weight: Vital Signs (12 hours) Temp Pulse Resp BP Pulse Ox 08/31/17 20:00 98.5 F 91 18 128/68 98 Weight Weight 52.163 kg I&O: 08/30/17 08/31/17 09/01/17 06:59 06:59 06:59 Intake Total 944 1714 Balance 944 1714 Result Diagrams: 09/01/17 08:57 09/01/17 08:57 <Hellen Singleton - Last Filed: 09/01/17 10:31> - Objective Vital Signs & Weight: Weight Weight 52.163 kg I&O: 09/01/17 09/02/17 09/03/17 06:59 06:59 06:59 Intake Total 2314 510 Balance 2314 510 Result Diagrams: 09/01/17 08:57 09/01/17 08:57 <Newton Eden A - Last Filed: 09/02/17 07:44> Phys Exam - Physical Examination Constitutional: NAD HEENT: moist MMs muddy sclera, poor dentition Neck: supple Respiratory: no wheezing, clear to auscultation bilateral Cardiovascular: RRR, no significant murmur Gastrointestinal: soft, no distention, positive bowel sounds midly TTP along midline where scar is Musculoskeletal: no edema Neurological: non-focal, moves all 4 limbs Psychiatric: normal affect, A&O x 3 Deviation from normal: scar in mid-abdomen <Hellen Singleton E - Last Filed: 09/01/17 10:31> Dx/Plan (1) Abdominal pain Code(s): R10.9 - UNSPECIFIED ABDOMINAL PAIN Status: Acute (2) Elevated LFTs Code(s): R94.5 - ABNORMAL RESULTS OF LIVER FUNCTION STUDIES Status: Acute (3) History of peptic ulcer Code(s): Z87.11 - PERSONAL HISTORY OF PEPTIC ULCER DISEASE Status: Acute (4) Elevated blood pressure reading Code(s): R03.0 - ELEVATED BLOOD-PRESSURE READING, W/O DIAGNOSIS OF HTN Status : Acute (5) Hypokalemia Code(s): E87.6 - HYPOKALEMIA Status: Acute (6) Tobacco abuse Code(s): Z72.0 - TOBACCO USE Status: Chronic - Plan Plan: 42 yo AAF who presented with severe abdominal pain, N/V and history of perforated peptic ulcer 1. Hypokalemia and hyponatremia 2/2 N/V - N/V resolved - Tolerating K+ supplementation and grape juice - Continue IVF with KCL and PO supplementation - Will transition to PO supplementation exclusively - Will need repeat labs in approximately 1 week outpatient 2. Abdominal pain - Much improved - Will transition morphine to tylenol - s/p EGD with Dr. Cowart which showed small hiatal hernia and thickening c/ w prior perforation site - Advance diet as tolerated this morning 3. HTN - Now with > 2 readings over 140/90 - DASH diet and will need OP follow-up - With metabolic derangements do not want to start diuretic or ACEi in acute setting 4. H/o perforated PUD - Appreciate Dr. Cowart's assistance - Continue PPI - NSAID avoidance 5. Tobacco abuse - Cessation counseling 6. Dark stool - Hemoccult negative and H&H stable today - No signs of acute blood loss - Continue OP monitoring If tolerates breakfast this morning, plan for discharge later this morning <Hellen Singleton - Last Filed: 09/01/17 10:31> Attending Addendum - Attending Addendum Date/Time: 09/02/17 0743 I personally evaluated the patient and discussed the management with Dr. Singleton yesterday. I agree with the History, Examination, Assessment and Plan documented above with any addition or exceptions noted below. Inpatient workup complete. Angus will benefit from regular outpatient evaluations. <Newton Eden A - Last Filed: 09/02/17 07:44>
[2017-09-01 07:56] VITALS: BP 138/92; TEMP 97.6
[2017-09-01] MEDS ORDERED: traMADol HCl 50 MG TAB PO PRN (09:01)
[2017-09-01] MEDS ORDERED: Acetaminophen 500 MG TAB PO PRN (09:01)
[2017-09-01] MEDS: Pantoprazole 40 MG VIAL IVP SCH (09:10)
--- NOTE | 2017-09-01 09:23 | CON ---
DATE OF CONSULTATION: 08/31/2017 REFERRING PHYSICIAN: Dr. Tana Chen, [facility]. REASON FOR CONSULTATION: Abdominal pain. HISTORY OF PRESENT ILLNESS: Ms. Angus Clark is a 42-year-old -Maltese female hospitalized with acute abdominal pain and some nausea. The patient had abdominal CAT scan, which was basically negative except for some thickened pyloric area. She also had abdominal sonogram which was negative for any significant pathology. The patient appears very comfortable at present. She says she is fee ling better because she has been getting some pain medication. The patient had a perforated pyloric channel ulcer in 10/2016. She underwent surgery by Dr. Heron Bradley. After surgery, she was placed on pantoprazole 40 once a day. She says she has been taking pantoprazole regular basis. She does n ot take any anxiety medication, nor aspirin. She has a history of chronic pain and muscle spasm and takes Soma and also Tylenol No. 3. The patient does not taken aspirin or any NSAID recently. The pa joellen has had pain over the last 5 to 6 days, but the pain got intense and she was hospitalized. As mentioned, she has had abdominal CAT scan, which was negative and also abdominal sonogram. The patie nt is a chronic smoker. Although she has had perforated ulcer disease, and further recommendations n o smoking, she currently smoke. She was smoking as much as 2 packets of cigarettes per day until abo ut a week ago. She quit smoking because of abdominal pain. No other relevant history. There is no history of hematochezia, any melena. Her bowels are fairly regular every day, but she has not seen b lack tarry stool. No other relevant history. ALLERGIES: None. SOCIAL HISTORY: The patient is a chronic smoker, smoked 2 packs of cigarettes per day until a week a go. No history of alcohol abuse, no history of drug abuse. MEDICAL ILLNESSES: 1. Perforated peptic ulcer on 10/2016 and underwent surgery. 2. Chronic pain and is on hydrocodone and also Soma. 3. She takes Lexapro for her depression and anxiety. SURGERIES: 1. Status post laparotomy for perforated peptic ulcer in 10/2016. 2. History of myomectomy. 3. History of partial hysterectomy subsequently. 4. History of right nephrectomy by Dr. Driver last year. FAMILY HISTORY: There is no family history of malignancy, heart disease, stroke, diabetes, etc. REVIEW OF SYSTEMS: A 10-point system reviewed. Constitutional: No history of fever, no weight loss , no fatigue or tiredness. 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 RESPIRATORY: No his tory of chronic cough, hemoptysis, dyspnea. Cardiovascular: No chest pain, no palpitation, no exert ional dyspnea, orthopnea, or PND. Gastrointestinal: Abdominal pain and nausea. No vomiting, no hem atochezia, no melena. Genitourinary: No dysuria, hematuria or frequent urination. Musculoskeletal: History of chronic pain, back pain, and is on narcotics and some relaxant. Neurologic/Psychiatric: History of depression. PHYSICAL EXAMINATION: GENERAL: She is actually very skinny and thin built, appears comfortable at the present time. She i s awake, alert, oriented to time, place and person. VITAL SIGNS: Temperature 98.9 degree Fahrenheit. Pulse is 86, blood pressure 109/73. HEENT: Conjunctivae clear. NECK: Supple. No adenitis or thyromegaly noted. CARDIOVASCULAR: First and second heart sounds normal. LUNGS: Clear to auscultation. ABDOMEN: Soft and nondistended. Abdomen is mildly tender over the periumbilical area, epigastric ar ea. There is no rebound or guarding. EXTREMITIES: Reveal no edema. LABORATORY DATA: On admission, CBC shows WBC 9800, hemoglobin 12.4, hematocrit 38.2, MCV 97.8, plate let count 317,000, polymorphs 51, lymphocytes 37, monocytes 8. Chemistry: Sodium 133, potassium 2.9 , chloride is 102, bicarbonate 20, BUN is 5, creatinine 0.73, glucose is 94, calcium 8.7, magnesium 1 .5, bilirubin 0.8, AST 31, ALT slightly high at 76, alkaline phosphatase is 48, LDH 61, total protein 6.2, albumin 3.7. Urine test is negative. No amylase and lipase done. Abdominal CAT sca n shows a thickened pyloric area. Otherwise, the exam is normal. CLINICAL IMPRESSION: A 42-year-old -Maltese female with abdominal pain and nausea. The pain has been worse over the last several days. Her lab data is basically unremarkable. ALT is slightly elevated. She is a chronic smoker and smokes 2 packets of cigarettes every day. She also had a per forated peptic ulcer in 2017. RECOMMENDATIONS: 1. EGD later on this morning. 2. Continue proton-pump inhibitor. 3. . 4. Follow LFTs.
[2017-09-01 09:53] LABS: ALT (SGPT) 68 U/L (8-55); AST (SGOT) 24 U/L (5-34); Alkaline Phosphatase 52 U/L (40-150); Anion Gap 13 mmol/L (10-20); BUN (Urea Nitrogen) Less than 4 mg/dL (7.0-18.7); Bilirubin, Total 0.7 mg/dL (0.2-1.2); Calc. Creatinine Clearance 82 mL/min (70-130); Carbon Dioxide 19 mmol/L (22-29); Chloride 103 mmol/L (98-107); Estimated GFR-MDRD Greater than 90; Globulin 2.8 g/dL (2.4-3.5); Glucose 92 mg/dL (70-105); Potassium 3.3 mmol/L (3.5-5.1); Protein, Total 6.8 g/dL (6.0-8.3); Sodium 132 mmol/L (136-145)
[2017-09-01 10:00] LABS: Eosinophils 1 % (0-10); Hemoglobin 14.5 g/dL (12.0-16.0); Lymphocytes 50 % (21-51); MDiff Complete? YES; Mean Corpuscular HGB CONC 32.9 g/dL (32.0-36.0); Mean Corpuscular Hemoglobin 31.4 pg (27.0-31.0); Mean Corpuscular Volume 95.5 fL (78.0-98.0); Mean Platelet Volume 6.3 fL (7.4-10.4); Monocytes 12 % (0-10); Neutrophil 36 % (42-75); Platelet Count 366 thou/uL (130-400); RBC Distribution Width 13.8 % (11.5-14.5); RBC Morphology Normal; Red Blood Cell (RBC) Count 4.63 mill/uL (4.20-5.40); White Blood Cell (WBC) Count 6.5 thou/uL (4.8-10.8)
--- NOTE | 2017-09-02 08:40 | DIS-2 ---
DATE OF ADMISSION: 08/30/2017 DATE OF DISCHARGE: 09/01/2017 RESIDENT: Hellen Singleton M.D. ADMITTING ATTENDING: Lupillo Gaspar M.D. DISCHARGE ATTENDING: Newton Eden M.D. CONSULTS: Dr. Cowart with Gastroenterology. PROCEDURES: A pelvic ultrasound (08/30/2017) showed no significant abnormalities. The uterus and ri ght ovary are not visualized. The left ovary that measures 2.2 x 1.6 x 1.5 cm with 1.2 dominant foll icle. Flow is demonstrated through the left ovary and no pelvic mass or free fluid is identified. A bdomen and pelvis CT (08/30/2017), probable wall thickening of the pyloric antrum. Further evaluatio n with endoscopy recommended. Abdominal ultrasound (08/30/2017) showed the liver, pancreas, gallbladder and right kidney appear nor mal. Common duct measures 2 mm in diameter. No free fluid was seen. Operative report from esophagogastroduodenoscopy (08/31/2017), normal esophagogastroduodenoscopy. No ulcer disease seen. In the pyloric channel, there is an area of mucosal edema and erythema, most li palak represents previously perforated ulcer disease. At the time of endoscopy, no ulcers were seen. PRIMARY DIAGNOSES: Abdominal pain likely related to a viral gastroenteritis. SECONDARY DIAGNOSES: 1. History of peptic ulcer disease with history of ulcer perforation and resultant laparotomy. 2. New diagnosis of hypertension. 3. Hyponatremia and hypokalemia, stable. 5. Tobacco abuse. 6. Chronic pain related to disk disease. DISCHARGE MEDICATIONS: 1. Potassium 20 mEq p.o. daily x1 week. 2. Protonix 40 mg p.o. daily. 3. Zofran 4 mg p.o. q.6. p.r.n. nausea and vomiting. 4. Lexapro 10 mg p.o. daily. 5. Soma 250 mg p.o. q.6 hours p.r.n. 6. Gwynn 10/325 one tab q.6 hours p.r.n. HISTORY OF PRESENT ILLNESS AND HOSPITAL COURSE: Ms. Clark is a 42-year-old female with a history of peptic ulcer disease with perforation, who presented for intractable abdominal pain. She reported sh e had had nausea and vomiting for approximately 5 days and was unable to tolerate any p.o. She was s tarted on fluids and Zofran, and she had fever on admission. Blood and urine cultures were also orde red. Dr. Cowart with Gastroenterology was consulted for patient's significant history though init ial imaging was negative. He performed an EGD, which was unremarkable. The patient's abdominal pain has significantly improved and she is tolerating p.o. It was stressed to her the importance of foll owing up and establishing care with a physician within the next week so that her electrolytes can be rechecked as well as a possible diagnosis of hypertension addressed. At this time as her blood press ures were borderline, we elected to hold off on starting any diuretics or PERLITA inhibitors until she co uld be seen in the outpatient setting. The patient's home medications were resumed. Thus she was en couraged to follow up with her pain management doctor for titration and management of those medicatio ns. Additionally, the patient has been noted on prior admissions to have microscopic hematuria. At this time, she had no gross blood in her H&H remained stable; however, it is recommended that this be followed up outpatient as patient has reported good ability [facility]. DISPOSITION: Stable. DISCHARGE INSTRUCTIONS: 1. Location: Home. 2. Diet: Heart healthy and low sodium diet was discussed in the setting of new onset of hypertensio n. 3. Activity: As tolerated. 4. Followup: The patient was encouraged to reestablish care with PCP within 1 week of discharge for followup of hyponatremia, hyperkalemia as discussed above.
== END 2017-09-01 12:45 | disposition home or self-care (01) ==
LOC: ERS 15:57 → ONC 18:00
PROVIDERS: ADMIT Family Medicine; ATTEND Internal Medicine Gastroenterology
PROC: 0DJ08ZZ Inspection of Upper Intestinal Tract, Via Natural or Artificial Opening Endoscopic (ICD-10-PCS; principal; 2017-08-31)
DX: R10.9 Unspecified abdominal pain (principal); I10 Essential (primary) hypertension; E87.1 Hypo-osmolality and hyponatremia; G89.29 Other chronic pain; R94.5 Abnormal results of liver function studies; E87.6 Hypokalemia; F17.210 Nicotine dependence, cigarettes, uncomplicated; Z79.899 Other long term (current) drug therapy
CPT/HCPCS: 36415; 74177; 76705; 76856; 80053; 80306; 80307; 82274; 83615; 83690; 83735; 84703; 85025; 86704; 86706; 86708; 86780; 86803; 87040; 87086; 87340; 87389; 93005; 93010; 96361; 96365; 96366; 96367; 96374; 96375; 96376; A4216; C9113; G0378; J1885; J2001; J2060; J2250; J2270; J2405; J2543; J2704; J3010; J3475; J3480; J7050; Q0162

== ENCOUNTER 2018-01-19 14:54 | Emergency (ER) | payer SELFPAY ==
[2018-01-19 16:59] LABS: Lactic Acid 1.6 mmol/L (0.5-2.2)
== END 2018-01-19 18:10 | disposition home or self-care (01) ==
LOC: ERS 14:54
DX: R10.13 Epigastric pain (principal); F17.210 Nicotine dependence, cigarettes, uncomplicated
CPT/HCPCS: 36415; 83605; 99285

== ENCOUNTER 2018-05-02 08:38 | Emergency (ER) | payer SELFPAY ==
[2018-05-02] MEDS ORDERED: Famotidine/PF 20 mg/2ml Vial ONE (09:14)
[2018-05-02] MEDS ORDERED: Ondansetron PF 4 MG/2 ML Vial ONE ×2 (09:14→10:31)
[2018-05-02] MEDS ORDERED: Lidocaine Viscous Sol 2% 15 ml UD Cup ONE (09:53)
[2018-05-02] MEDS ORDERED: Mag-Al 1200 mg/1200 mg/30 ML UDCUP ONE (09:55)
[2018-05-02 10:00] LABS: #Basophils 0.1 thou/uL (0.0-0.2); #Lymphocytes 2.6 thou/uL (1.20-3.40); #Monocytes 0.9 thou/uL (0.11-0.59); #Neutrophils 6.6 thou/uL (1.40-6.50); %Basophils 0.9 % (0.0-1.0); %Eosinophils 0.4 % (0.0-10.0); %Lymphocytes 25.3 % (21.0-51.0); %Monocytes 8.8 % (0.0-10.0); %Neutrophils 64.6 % (42.0-75.0); Hemoglobin 13.3 g/dL (12.0-16.0); Mean Corpuscular Hemoglobin 31.1 pg (27.0-31.0); Mean Platelet Volume 7.4 fL (7.4-10.4); Platelet Count 257 thou/uL (130-400); RBC Distribution Width 13.6 % (11.5-14.5); Red Blood Cell (RBC) Count 4.28 mill/uL (4.20-5.40); White Blood Cell (WBC) Count 10.3 thou/uL (4.8-10.8)
[2018-05-02 10:19] LABS: ALT (SGPT) 14 U/L (8-55); AST (SGOT) 16 U/L (5-34); Alkaline Phosphatase 70 U/L (40-150); Anion Gap 16 mmol/L (10-20); BUN (Urea Nitrogen) 14 mg/dL (7.0-18.7); Bilirubin, Total 0.4 mg/dL (0.2-1.2); Calc. Creatinine Clearance 0 mL/min (70-130); Calcium 9.4 mg/dL (7.8-10.44); Carbon Dioxide 19 mmol/L (22-29); Chloride 106 mmol/L (98-107); Estimated GFR-MDRD Greater than 90; Globulin 3.2 g/dL (2.4-3.5); Glucose 132 mg/dL (70-105); Lipase 19 U/L (8-78); Potassium 3.6 mmol/L (3.5-5.1); Protein, Total 7.2 g/dL (6.0-8.3); Sodium 137 mmol/L (136-145)
[2018-05-02] MEDS ORDERED: Morphine 4 MG/ML VIAL ONE (10:31)
--- NOTE | 2018-05-02 11:24 | CT ---
CT ABDOMEN WITH CONTRAST CT PELVIS WITH COTNRAST: COMPARISON: 01/19/2018. HISTORY: Epigastric pain. History of ruptured peptic ulcer disease. FINDINGS: CT ABDOMEN: Lung bases are clear. Heart size is normal. No pericardial effusion. The visualized aorta has a no rmal caliber. No periaortic fat stranding. Portal vein is patent. Liver, spleen, pancreas, and adrenal glands have appropriate enhancement. No gastrohepatic, retrocrural, or periportal lymphadenopathy. Gallbladder is unremarkable. Symmetric enhancement of the kidneys. Bilaterally, no obstructive uropathy. Subcentimeter hypodensi ties in the left kidney are too small to characterize. Decreased intraabdominal fat limits evaluation for inflammatory change. No mesenteric mass, lymphade nopathy, free air, or free fluid. Limited evaluation of the alimentary canal by the lack of oral contrast. No obvious inflammation in the stomach or duodenum. Multiple normal-caliber small bowel loops. Ileocecal junction is normal. There does appear to be some fecalization of what is likely segment of small bowel extending into the right hemipelvis. Better interrogation with a CT with oral and IV contrast if clinically warranted. Normal-caliber appendix is noted. CT PELVIS: Hysterectomy changes. No pelvic mass, free air, or free fluid. Hypodensity in the left adnexa likel y representing a 2.2 x 2.4 cm left ovarian cyst. IMPRESSION: 1. No evidence of bowel obstruction. Nonspecific fecalization of small bowel loops in the left cassidy abdomen. Repeat CT if clinically warranted. 2. Normal caliber appendix. 3. Hypodensity in the left adnexa, likely ovarian in origin. Nonemergent pelvic ultrasound in 8-10 weeks. POS: SHEN
[2018-05-02] MEDS ORDERED: Ketorolac Tromethamine 30 MG/ML VIAL ONE (11:41)
[2018-05-02 12:11] LABS: Bilirubin Negative (Negative); Blood, Urine Trace (Negative); Clarity CLEAR (Clear); Glucose, Urine (Dipstick) Negative (Negative); Leukocyte Negative (Negative); Nitrite Negative (Negative); Protein, Urine (Dipstick) Negative (Neg-Trace); Urobilinogen 0.2 mg/dL (0.2-1.0); pH, Urine 7.5 (5.0-9.0)
[2018-05-02 12:14] LABS: Bacteria/HPF None Seen HPF (None Seen); Hyaline Casts/LPF 0-3 HYALINE CAST LPF (0-3 Hyaline); Pathc Cast-AUWi Flag 0.14 (0-2.49); Specific Gravity, Urine 1.054 (1.002-1.036); Squamous Epithelial 0-3 HPF (0-3); WBC/HPF None Seen HPF (0-3)
[2018-05-02 12:21] LABS: Amphetamine Not Detected (NotDetected); Barbiturates Screen Not Detected (NotDetected); Benzodiazepine Screen Not Detected (NotDetected); Cocaine Metabolite Screen Not Detected (NotDetected); Medtox Control Line Valid? VALID (VALID); Medtox Reader # READER 1; Methadone Not Detected (NotDetected); Methamphetamine Not Detected (NotDetected); Opiate Screen Detected (NotDetected); Oxycodone Screen Not Detected (NotDetected); Phencyclidine (PCP) Not Detected (NotDetected); THC/Cannabinoid Screen Not Detected (NotDetected); Tricyclic Screen Not Detected (NotDetected)
[2018-05-02] MEDS ORDERED: Pantoprazole 40 MG VIAL ONE (12:51)
[2018-05-02] MEDS ORDERED: ISOVUE-370 76%-LOCM 1 ML ONE (16:48)
== END 2018-05-02 13:10 | disposition home or self-care (01) ==
LOC: ERS 08:38
DX: R10.9 Unspecified abdominal pain (principal); R11.2 Nausea with vomiting, unspecified; F17.210 Nicotine dependence, cigarettes, uncomplicated; Z79.899 Other long term (current) drug therapy
CPT/HCPCS: 36415; 74177; 80053; 80306; 81003; 81015; 83605; 83690; 84484; 84702; 85025; 93005; 96361; 96374; 96375; 96376; C9113; J1885; J2270; J2405; Q9966; S0028

== ENCOUNTER 2018-10-26 18:02 | Emergency (ER) | payer SELFPAY ==
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
== END 2018-10-26 19:17 | disposition home or self-care (01) ==
LOC: SCSER 18:02
DX: S90.32XA Contusion of left foot, initial encounter (principal); K56.609 Unspecified intestinal obstruction, unspecified as to partial versus complete obstruction; F17.210 Nicotine dependence, cigarettes, uncomplicated; W22.8XXA Striking against or struck by other objects, initial encounter

== ENCOUNTER 2019-09-26 17:21 | Emergency (ER) | payer OTHER ==
[2019-09-26 17:55] LABS: Bacteria/HPF None Seen HPF (None Seen); Bilirubin Negative (Negative); Blood, Urine 3+ (Negative); Clarity Clear (Clear); Glucose, Urine (Dipstick) Normal (Negative); Ketone, Urine 40 mg/dL (Negative); Leukocyte Negative Leu/uL (Negative); Nitrite Negative (Negative); Protein, Urine (Dipstick) 70 mg/dL (Neg-Trace); RBC/HPF 21-50 HPF (0-3); Urobilinogen Normal mg/dL (Less than 2); pH, Urine 6.5 (5.0-9.0)
[2019-09-26 17:56] LABS: Pregnancy Test - Urine (BHCG) Negative (Negative); Pregu Control Background? CLEAR/WHITE (CLR/WHITE); Pregu Control Bar Appear? YES (CONTROL BAR)
[2019-09-26] MEDS ORDERED: Haloperidol Lactate 5 MG/ML VIAL ONE (18:01)
[2019-09-26] MEDS ORDERED: diphenhydrAMINE 50 MG/ML VIAL ONE (18:01)
[2019-09-26 18:08] LABS: #Lymphocytes 2.2 thou/uL (1.20-3.40); #Monocytes 0.8 thou/uL (0.11-0.59); #Neutrophils 7.3 thou/uL (1.40-6.50); %Basophils 0.3 % (0.0-1.0); %Eosinophils 0.1 % (0.0-10.0); %Lymphocytes 20.8 % (21.0-51.0); %Neutrophils 70.8 % (42.0-75.0); Hemoglobin 12.3 g/dL (12.0-16.0); Mean Corpuscular HGB CONC 34.4 g/dL (32.0-36.0); Mean Corpuscular Hemoglobin 32.4 pg (27.0-31.0); Mean Corpuscular Volume 94.1 fL (78.0-98.0); Mean Platelet Volume 8.3 fL (7.4-10.4); Platelet Count 258 thou/uL (130-400); RBC Distribution Width 12.3 % (11.5-14.5); White Blood Cell (WBC) Count 10.4 thou/uL (4.8-10.8)
[2019-09-26 18:31] LABS: ALT (SGPT) 69 U/L (8-55); AST (SGOT) 149 U/L (5-34); Albumin 4.2 g/dL (3.5-5.0); Alkaline Phosphatase 71 U/L (40-110); Anion Gap 18 mmol/L (10-20); BUN (Urea Nitrogen) 17 mg/dL (7.0-18.7); Bilirubin, Total 0.7 mg/dL (0.2-1.2); Calc. Creatinine Clearance 0 mL/min (70-130); Calcium 9.3 mg/dL (7.8-10.44); Carbon Dioxide 18 mmol/L (22-29); Chloride 103 mmol/L (98-107); Estimated GFR-MDRD 85; Globulin 3.4 g/dL (2.4-3.5); Glucose 79 mg/dL (70-105); Lipase 8 U/L (8-78); Potassium 4.1 mmol/L (3.5-5.1); Protein, Total 7.6 g/dL (6.0-8.3); Sodium 135 mmol/L (136-145)
--- NOTE | 2019-09-26 20:14 | ULT ---
Sonogram right upper quadrant HISTORY: Right upper quadrant pain. FINDINGS: Gallbladder has a normal appearance. No stones evident. Common duct is 0.2 cm. Liver unremarkable without focal mass or intrahepatic biliary dilatation. IMPRESSION : Normal exam.
[2019-09-26] MEDS ORDERED: Sucralfate 1 GM/10 ML UDCUP ONE (21:03)
== END 2019-09-26 21:26 | disposition home or self-care (01) ==
LOC: ERS 17:21
DX: R10.84 Generalized abdominal pain (principal); R94.5 Abnormal results of liver function studies; R11.2 Nausea with vomiting, unspecified; R31.9 Hematuria, unspecified; F41.9 Anxiety disorder, unspecified; Z87.891 Personal history of nicotine dependence; Z79.899 Other long term (current) drug therapy
CPT/HCPCS: 76705; 81025; 83690; 93005; 96361; 96374; 96375; J1200; J1630

== ENCOUNTER 2019-09-30 06:06 | Emergency (ER) | payer OTHER ==
[2019-09-30] MEDS ORDERED: Lidocaine Viscous Sol 2% 15 ml UD Cup ONE (06:17)
[2019-09-30] MEDS ORDERED: Mag-Al 1200 mg/1200 mg/30 ML UDCUP ONE (06:17)
[2019-09-30] MEDS ORDERED: Ketorolac Tromethamine 30 MG/ML VIAL ONE (06:17)
[2019-09-30] MEDS ORDERED: Ondansetron ODT 4 MG TAB ONE (06:23)
== END 2019-09-30 06:38 | disposition home or self-care (01) ==
LOC: ERS 06:06
DX: R10.10 Upper abdominal pain, unspecified (principal); R10.817 Generalized abdominal tenderness; F41.9 Anxiety disorder, unspecified; F32.9 Major depressive disorder, single episode, unspecified; F43.10 Post-traumatic stress disorder, unspecified; Z87.891 Personal history of nicotine dependence; Z79.899 Other long term (current) drug therapy
CPT/HCPCS: 96372; 99281; J1885; Q0162

== ENCOUNTER 2020-04-29 18:34 | Emergency (ER) | payer BC, SELFPAY ==
[2020-04-29] MEDS ORDERED: Haloperidol Lactate 5 MG/ML VIAL ONE (18:44)
[2020-04-29 19:11] LABS: #Basophils 0.1 thou/uL (0.0-0.2); #Lymphocytes 2.2 thou/uL (1.20-3.40); #Monocytes 0.6 thou/uL (0.11-0.59); #Neutrophils 6.3 thou/uL (1.40-6.50); %Eosinophils 0.1 % (0.0-10.0); %Lymphocytes 24.4 % (21.0-51.0); %Neutrophils 68.5 % (42.0-75.0); Hemoglobin 13.6 g/dL (12.0-16.0); Mean Corpuscular HGB CONC 33.5 g/dL (32.0-36.0); Mean Corpuscular Hemoglobin 32.2 pg (27.0-31.0); Mean Corpuscular Volume 96.1 fL (78.0-98.0); Mean Platelet Volume 6.8 fL (7.4-10.4); Platelet Count 340 thou/uL (130-400); RBC Distribution Width 11.7 % (11.5-14.5); Red Blood Cell (RBC) Count 4.23 mill/uL (4.20-5.40); White Blood Cell (WBC) Count 9.2 thou/uL (4.8-10.8)
[2020-04-29 19:22] LABS: Pregnancy Test - Urine (BHCG) Negative (Negative); Pregu Control Background? CLEAR/WHITE (CLR/WHITE); Pregu Control Bar Appear? YES (CONTROL BAR); Specific Gravity 1.026 (1.002-1.036)
[2020-04-29 19:23] LABS: Bacteria/HPF None Seen HPF (None Seen); Bilirubin Negative (Negative); Blood, Urine 2+ (Negative); Clarity Clear (Clear); Glucose, Urine (Dipstick) Normal (Negative); Ketone, Urine 10 mg/dL (Negative); Leukocyte Negative Leu/uL (Negative); Nitrite Negative (Negative); Protein, Urine (Dipstick) Negative (Neg-Trace); Specific Gravity, Urine 1.026 (1.002-1.036); Urobilinogen Normal mg/dL (Less than 2); WBC/HPF 0-3 HPF (0-3); pH, Urine 6.5 (5.0-9.0)
[2020-04-29 19:33] LABS: ALT (SGPT) 44 U/L (8-55); AST (SGOT) 34 U/L (5-34); Albumin 4.2 g/dL (3.5-5.0); Alkaline Phosphatase 71 U/L (40-110); Anion Gap 16 mmol/L (10-20); BUN (Urea Nitrogen) 12 mg/dL (7.0-18.7); Bilirubin, Total 0.6 mg/dL (0.2-1.2); Calc. Creatinine Clearance 0 mL/min (70-130); Calcium 9.4 mg/dL (7.8-10.44); Carbon Dioxide 21 mmol/L (22-29); Chloride 109 mmol/L (98-107); Globulin 3.1 g/dL (2.4-3.5); Glucose 103 mg/dL (70-105); Lipase 23 U/L (8-78); Potassium 3.7 mmol/L (3.5-5.1); Protein, Total 7.3 g/dL (6.0-8.3); Sodium 142 mmol/L (136-145)
== END 2020-04-29 20:42 | disposition home or self-care (01) ==
LOC: ERS 18:34
DX: R10.13 Epigastric pain (principal); Z79.899 Other long term (current) drug therapy; Z79.891 Long term (current) use of opiate analgesic; F17.210 Nicotine dependence, cigarettes, uncomplicated
CPT/HCPCS: 36415; 80053; 81003; 81015; 81025; 83690; 84484; 85025; 93005; 96374; J1630